=== PATIENT | male | born 1995 | race Caucasian/White ===

== ENCOUNTER 2016-05-31 08:35 | Day surgery (SDC) | payer OTHER ==
[~2016-05-31] VITALS: Ht 177.8 cm; Wt 62.8 kg
[~2016-05-31 08:35] MED LIST: CEFAZOLIN 1 GM INJ ONE; SEVOFLURANE 15 MIN ONE
[2016-05-31] MEDS ORDERED: CEFAZOLIN 1 GM/50 ML (PMX) 50 ML IVPB ONE (09:00)
[2016-05-31 09:43] VITALS: Ht 177.8 cm; Wt 62.8 kg
[2016-05-31 10:36] VITALS: BP 108/63; PULSE 60; RESP 16
[2016-05-31] MEDS ORDERED: FENTAnyl 50 MCG/ML VIAL ONE (11:44)
[2016-05-31] MEDS ORDERED: MIDAZOLAM 1 MG/ML 2 ML INJ ONE (11:44)
[2016-05-31] MEDS ORDERED: LIDOCAINE 2% (SDV) 5 ML INJ ONE (11:44)
[2016-05-31] MEDS ORDERED: ROCURONIUM 50 MG INJ ONE (11:44)
[2016-05-31] MEDS ORDERED: PROPOFOL 20 ML ONE (11:44)
[2016-05-31] MEDS ORDERED: NEOSTIGMINE 3 MG/3 ML SYRINGE ONE (11:44)
[2016-05-31] MEDS ORDERED: GLYCOPYRROLATE 0.4 MG INJ ONE (11:44)
[2016-05-31] MEDS ORDERED: hydrALAzine 20 MG INJ IV PRN (12:00)
[2016-05-31] MEDS ORDERED: morphine (1 MG/ML) 10ML SYRINGE IV PRN ×3 (12:00)
[2016-05-31] MEDS ORDERED: ATROPINE 1 MG/10 ML SYRINGE IV PRN (12:00)
[2016-05-31] MEDS ORDERED: FENTAnyl 50 MCG/ML VIAL IV PRN ×2 (12:00)
[2016-05-31] MEDS ORDERED: MEPERIDINE 25 MG INJ IV PRN (12:00)
[2016-05-31] MEDS ORDERED: DIPHENHYDRAMINE 50 MG INJ IV PRN (12:00)
[2016-05-31] MEDS ORDERED: OXYCODONE/ACETAMINOPHEN (5/325) TAB PO PRN ×2 (12:00)
[2016-05-31] MEDS ORDERED: ONDANSETRON 4 MG INJ IV PRN (12:00)
[2016-05-31] MEDS ORDERED: MIDAZOLAM 1 MG/ML 2 ML INJ IV PRN (12:00)
[2016-05-31] MEDS ORDERED: LABETALOL HCL 20MG INJ IV PRN (12:00)
[2016-05-31] MEDS ORDERED: EPHEDrine SULFATE 50 MG/5 ML SYG IV PRN (12:00)
[2016-05-31] MEDS ORDERED: HYDROmorphONE (0.2 MG/ML) 10ML SYG IV PRN ×3 (12:00)
--- NOTE | 2016-05-31 12:25 | HPN ---
Date/Time of Note Date/Time of Note DATE: 05/31/16 TIME: 12:24 Interval H&P Admission Note Pt. seen H&P reviewed: No system changes SRIRAM RITTER MD May 31, 2016 12:25
[2016-05-31] MEDS ORDERED: PHENYLephrine 0.5% 15 ML NAS SPRAY ONE (12:31)
[2016-05-31] MEDS ORDERED: LIDOCAINE 1%/EPI (MDV) 20 ML INJ ONE (12:31)
[2016-05-31] MEDS ORDERED: NEOMYC/POLYMYX/BACIT 30 GM OINT ONE (12:31)
[2016-05-31] MEDS ORDERED: DEXAMETHASONE 4 MG/ML 1 ML INJ ONE (12:34)
[2016-05-31] MEDS ORDERED: ONDANSETRON 4 MG INJ ONE (12:34)
[2016-05-31 14:43] VITALS: BP 120/72; PULSE 65; RESP 18
[2016-05-31 14:48] VITALS: BP 128/76; PULSE 70; RESP 17
[2016-05-31 14:49] VITALS: BP 122/73; PULSE 68; RESP 17
[2016-05-31 14:54] VITALS: BP 120/72; PULSE 66; RESP 17
--- NOTE | 2016-05-31 15:11 | OPR ---
DATE OF OPERATION: 05/31/2016 PREOPERATIVE DIAGNOSES: 1. 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 2. Deviated septum. 3. Turbinate hypertrophy. POSTOPERATIVE DIAGNOSES: 1. 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 2. Deviated septum. 3. Turbinate hypertrophy. OPERATION PERFORMED: 1. Open septoplasty. 2. Open nasal valve repair. 3. Inferior turbinate reduction via submucous resection. 4. [place] of septal cartilage. ANESTHESIA: General endotracheal. INDICATIONS FOR PROCEDURE: The patient is a 21-year-old male with a history of nasal trauma and res ultant saddle nose deformity, who has severe nasal obstruction that has been refractory to medical m anagement. The risks, benefits, and alternatives of surgery were discussed which included, but are not limited to, bleeding, infection, pain, scarring, need for further surgery, no improvement in sym ptoms, septal perforation, numbness to the upper teeth. He understood all these and signed a consen t. DESCRIPTION OF PROCEDURE: After informed consent was obtained, the patient was brought back to the operating room. He was intubated by anesthesia and sedated. The bed was turned 90 degrees. His ey es were protected and a head drape was placed. Farzad-Synephrine soaked pledgets were inserted into th e nasal cavity and left for several minutes and then removed. 1% lidocaine with epinephrine was inj ected into the inferior turbinates and nasal septum, as well as the nasal dorsum. A left hemitransf ixion incision was made with a 15 blade. A mucoperichondrial flap was elevated. An approximately 15 x 15-mm piece of quadrangular cartilage was harvested for future use. Next, the deviated portions of vomer bone and maxillary crest bone were removed. Care was taken to leave a 1.5-cm dorsal and caudal strut. At this point the septum was found to be straight and the f lap was closed with interrupted 4-0 chromic suture. An inverted V columellar incision was then made with an 11 blade, followed by bilateral marginal inc isions with a 15 blade. The nose was opened in the standard fashion. The nasal dorsum was exposed. The upper lateral cartilages were from the nasal septum bilaterally with a 15 blade. Sp reader grafts were then created using the quadrangular cartilage. Each marine tower operator graft was measured t o be 12 x 3 mm and placed bilaterally and secured with a 5-0 PDS suture in mattress fashion. The re maining cartilage was then used and stacked on top of the dorsal defect to give a better contour of the dorsum from his saddle nose. At this point the nose was then closed. 6-0 nylon suture was used for the columellar incision and 4-0 chromic was used for the marginal incision. A stab incision was made under the heads of both inferior turbinates. Mucoperiosteal flaps were amrcelo vated. Inferior turbinate bone was removed with a Zain forceps. Bipolar cautery was applied wh ere needed. Silastic Parra splints coated in antibiotic ointment were placed bilaterally and secure d with a 3-0 Prolene suture. The nose was then taped. The patient was extubated by anesthesia and brought to the recovery room in stable condition. ESTIMATED BLOOD LOSS: Less than 50 mL. INTRAVENOUS FLUIDS: See anesthesia record. DRAINS: None. COMPLICATIONS: None. SPECIMENS: Nasal septum. Dictated By: SRIRAM RITTER MD, [facility]/LINDA Conf#: [id number] DID#: [id number]
[2016-05-31] MEDS ORDERED: HYDROCODONE/APAP (10/325) TAB PO ONE (16:30)
[2016-05-31 18:50] VITALS: BP 120/70; PULSE 82; RESP 16
== END 2016-05-31 18:53 | disposition home or self-care (01) ==
LOC: SDS 08:35 → EDSEX 14:30 → SDS 18:53
PROVIDERS: ATTEND Otolaryngology
DX: J34.2 Deviated nasal septum (principal); J34.3 Hypertrophy of nasal turbinates; M95.0 Acquired deformity of nose; J45.909 Unspecified asthma, uncomplicated
CPT/HCPCS: 30140; 30520; 88300; J0690; J1100; J2250; J2405; J2710; J3010; Z7512; Z7610